=== PATIENT | male | born 1980 | race Hispanic/Latino ===

== ENCOUNTER 2017-02-10 22:03 | Emergency (ER) | payer SELFPAY ==
--- NOTE | 2017-02-10 22:43 | RAD ---
RIGHT KNEE FOUR VIEWS 02/10/17 HISTORY: Fall. Right knee injury. FINDINGS: Joint spaces are preserved. Tricompartmental osteophytosis is apparent. Fluid distends in the suprapa tellar bursa on the lateral view. No acute fracture or dislocation are visible. IMPRESSION: Fluid distention of the joint capsule may be related to internal derangement or the otherwise mild os teoarthritic changes. No acute osseous abnormalities are demonstrated. POS: [facility]
[2017-02-10] MEDS ORDERED: traMADol HCl 50 MG TAB ONE (23:52)
[2017-02-10] MEDS ORDERED: Ketorolac Tromethamine 30 MG/ML VIAL ONE (23:52)
== END 2017-02-11 00:11 | disposition home or self-care (01) ==
LOC: ERS 22:03
DX: M23.91 Unspecified internal derangement of right knee (principal)
CPT/HCPCS: 96372; J1885